=== PATIENT | female | born 1985 | race Caucasian/White ===

== ENCOUNTER 2016-10-14 20:28 | Inpatient (IN) | payer BC ==
[~2016-10-14] VITALS: Ht 167.6 cm; Wt 82.3 kg
[2016-10-14] VITALS (11 sets, daily range): BP systolic 105–113; BP diastolic 59–69; PULSE 54–76; TEMP 98.1
[~2016-10-14 20:28] MED LIST: MOTRIN 800800 MG/TAB PO; PERCOCET 325 MG1 TA2 PO; PRENATAL VITAMI1 TAB PO
[2016-10-14 22:16] LABS: BASO % 0.3 % (0.0-2.0); EOS # 0.1 (0.0-0.7); EOS % 0.6 % (0-4.0); GRAN # 8.5 (1.4-6.5); GRAN % 69.2 % (42.2-75.2); HEMATOCRIT 33.9 % (37.0-47.0); HEMOGLOBIN 11.5 g/dl (12.5-16.0); LYMPH # 2.7 (1.2-3.4); LYMPH % 22.2 % (20.0-51.0); MEAN CELL VOLUME 86 fl (80.0-100.0); MEAN CORPUSCULAR HEMOGLOBIN 29 pg (27.0-31.0); MEAN CORPUSCULAR HGB CONC 34 g/dl (33.0-37.0); MEAN PLATELET VOLUME 10.9 fl (7.4-10.4); MONO # 0.9 (0.1-0.6); MONO % 6.9 % (1.7-9.3); PLATELET COUNT 195 K/mm3 (130-400); RED BLOOD COUNT 3.96 M/mm3 (4.10-5.30); REDCELL DISTRIBUTION WIDTH-CV 13.5 % (11.5-14.5); WHITE BLOOD COUNT 12.2 K/mm3 (4.8-10.8)
[2016-10-15] VITALS (7 sets, daily range): BP systolic 100–110; BP diastolic 61–70; PULSE 64–77; TEMP 97.8–98.3
[2016-10-16 03:00] VITALS: BP 115/68; PULSE 66; TEMP 98.4
[2016-10-16 07:30] VITALS: BP 108/68; PULSE 67; TEMP 98
[2016-10-16] MEDS ORDERED: IBU800 M1 PO (11:54)
[2016-10-16] MEDS ORDERED: PERCOCET 325 MG1 TA2 PO (11:55)
[2016-10-16 15:55] VITALS: BP 96/63; PULSE 82; TEMP 97.9
== END 2016-10-16 21:45 | disposition home or self-care (01) | DRG 775 ==
LOC: LDRO 20:28 → OB 20:59 → LDR 20:59 → OB 10-15 01:40
PROVIDERS: Obstetrics & Gynecology
PROC: 10E0XZZ Delivery of Products of Conception, External Approach (ICD-10-PCS; principal; 2016-10-14)
PROC: 0UQMXZZ Repair Vulva, External Approach (ICD-10-PCS; 2016-10-14)
PROC: 0HQ9XZZ Repair Perineum Skin, External Approach (ICD-10-PCS; 2016-10-14)
DX: O69.81X0 Labor and delivery complicated by cord around neck, without compression, not applicable or unspecified (principal); O77.0 Labor and delivery complicated by meconium in amniotic fluid; Z87.51 Personal history of pre-term labor; O71.82 Other specified trauma to perineum and vulva; O70.0 First degree perineal laceration during delivery; Z3A.37 37 weeks gestation of pregnancy; Z37.0 Single live birth
CPT/HCPCS: J2590; J2791; J7120

== ENCOUNTER 2021-10-24 11:42 | Inpatient (IN) | payer BC ==
[2021-10-24] VITALS (17 sets, daily range): BP systolic 100–125; BP diastolic 56–71; PULSE 64–82; TEMP 97.6–98.1
[~2021-10-24] VITALS: Ht 167.6 cm; Wt 97.3 kg
[~2021-10-24 11:42] MED LIST changes: +IBU800 M1 PO
--- NOTE | 2021-10-24 11:43 | NUR ---
1143- Pt arrives on unit via wheelchair with complaints of regular contractions every 3 mins since "this morning". Pt into bathroom to change into gown. 1148- Pt into bed, EFM and TOCO applied and tracing well. O2 sat monitor on and tracing maternal HR. VSS. Pt denies complications with . Denies LOF. States shes has bloody show. +FM per Pt.
[2021-10-24 12:26] LABS: MEAN CELL VOLUME 82 fl (80.0-100.0); MEAN CORPUSCULAR HEMOGLOBIN 27 pg (27-31); MEAN CORPUSCULAR HGB CONC 33 g/dl (33.0-37.0); MEAN PLATELET VOLUME 10.5 fl (7.4-10.4); PLATELET COUNT 253 K/mm3 (130-400); RED BLOOD COUNT 4.41 M/mm3 (4.10-5.30); REDCELL DISTRIBUTION WIDTH-CV 14.6 % (11.5-14.5)
[2021-10-24 12:27] LABS: HEMATOCRIT 36.1 % (37.0-47.0)
--- NOTE | 2021-10-24 12:30 | NUR ---
1205- IV start, labs obtained, Saline locked. 1215- IVF bolus started. 1217- Pt assisted to standing then sitting on side of bed for epidural placment. 1219- Chris Oliveros CRNA at bedside. 1225- Test dose, see anesthesia record. Pt tolerated well. 1229- Pt assisted to semi-folwers with WL. EFM and TOCO adjusted.
[2021-10-24] MEDS ORDERED: LEXAPRO 10MG10 MG PO (12:45)
[2021-10-24] MEDS ORDERED: PRENATAL TABLET PO (12:46)
[2021-10-24 12:55] LABS: BAND 3 % (0-10); LYMPHOCYTE 18 % (20.0-51.0); NEUTROPHILS 71 % (42.0-75.2); PLATELET ESTIMATE NORMAL (NORMAL)
--- NOTE | 2021-10-24 13:10 | NUR ---
1303- FHR deceleration noted, down to 80's, lasting approx 2 mins[address] This RN and Dr Bejarano to bedside. Pt and room prepped for delivery. NISHA Lugo at bedside. FHR back to baseline for approx. 20 seconds before FHR deceleration noted, down to 50's. lasting approx. 4 mins. Pt encouraged to push. MD discusses vacuum assited delivery, Pt agrees. 1308- Vacuum placed on head by MD. Pt pushed, 2 pop-off noted within 2mins. Vacuum remains off and Pt continues to push. 1310- of viable male . No spontaneous cry noted. Stimulated by MD. Cord clamped and cut, infant taken to warmer where tended to by Nursery RN, KATIE Bertrand, and Fanny Lofton, backup nursery RN. 1313- Spontaneous delivery of placenta. Pitocin started at 333mls/hr. Fundus massaged to firm by . Cord blood and cord gases obtained. Periurethral repair completed. Pericare completed. Ice pack and clean chux placed under Pt. Pt repositioned to high fowlers.
--- NOTE | 2021-10-24 15:50 | NUR ---
1550- Pt states she "peed the bed". Large amount of yellow urine noted on chux pad, changed. Pt ambulates to bathroom independently with this RN standby assist. Voids 700mls without difficulty. Pericare completed and explained. Clean gown on. Pt ambulates to PP room well with and this RN. Oriented to room. Call light within reach.
[2021-10-25 04:19] VITALS: BP 103/74; PULSE 66; TEMP 97.8
[2021-10-25] MEDS ORDERED: MOTRIN 800800 MG/TAB PO (08:12)
[2021-10-25] MEDS ORDERED: PERCOCET 325 MG1 TA2 PO (08:12)
[2021-10-25 08:36] VITALS: BP 105/61; PULSE 70; TEMP 97.6
--- NOTE | 2021-10-25 09:22 | NUR ---
Initial visit attempt; Family martha, Charge Auditor left card of congratulations for the of their son and information regarding the availability of spiritual care for our patients.
--- NOTE | 2021-10-25 15:45 | NUR ---
1545 - DISCHARGE INSTRUCTIONS REVIEWED. QUESTIONS ANSWERED. SPOUSE PRESENT FOR EDUCATION. 1610 - PATIENT DISCHARGED. PATIENT AMBULATORY OFF UNIT.
== END 2021-10-25 16:10 | disposition home or self-care (01) | DRG 807 ==
LOC: LDRO 11:42 → LDR 11:50 → OB 11:50
PROVIDERS: ADMIT Obstetrics & Gynecology
PROC: 10D07Z6 Extraction of Products of Conception, Vacuum, Via Natural or Artificial Opening (ICD-10-PCS; principal; 2021-10-24)
PROC: 10907ZC Drainage of Amniotic Fluid, Therapeutic from Products of Conception, Via Natural or Artificial Opening (ICD-10-PCS; 2021-10-24)
PROC: 0UQMXZZ Repair Vulva, External Approach (ICD-10-PCS; 2021-10-24)
DX: O99.344 Other mental disorders complicating childbirth (principal); Z37.0 Single live birth; O69.81X0 Labor and delivery complicated by cord around neck, without compression, not applicable or unspecified; F32.A Depression, unspecified; O76 Abnormality in fetal heart rate and rhythm complicating labor and delivery; O71.82 Other specified trauma to perineum and vulva; Z3A.38 38 weeks gestation of pregnancy
CPT/HCPCS: J2590; J2795; J7120